=== PATIENT | female | born 1945 | race Caucasian/White ===

== ENCOUNTER 2018-06-14 17:53 | Emergency (ER) | payer SELFPAY ==
[2018-06-14] MEDS ORDERED: SERT-173 PO (17:55)
[2018-06-14] MEDS ORDERED: ASPI81TA94 PO (17:55)
--- NOTE | 2018-06-14 18:00 | ER Report ---
History and Physical Time Seen By MD: 17:57 HPI/ROS CHIEF COMPLAINT: Right hip and knee pain HISTORY OF PRESENT ILLNESS: 72-year-old female brought in by [place] [facility] complaining of right hip and knee pain. 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 No traumatic injury or falls. She is unable to get up and bear weight this morning. She notes no other health problems. He received fentanyl IV by EMS. REVIEW OF SYSTEMS: Respiratory: No cough, no dyspnea. Cardiovascular: No chest pain, no palpitations. Gastrointestinal: No vomiting, no abdominal pain. Musculoskeletal: As above Allergies: Coded Allergies: No Known Drug Allergies (Unverified , 06/14/18) Home Meds Active Scripts Hydrocodone Bit/Acetaminophen (HYDROCODON-ACETAMINOPHEN 5-325) 1 Each Tablet, 1 EACH PO Q4-6H PRN for PAIN, #12 TAKE ONE TABLET BY MOUTH EVERY 4-6 HOURS NEEDED FOR PAIN Prov:ESDRAS RICHARDSON DO 06/14/18 Ciprofloxacin Hcl 500 Mg Tab (CIPRO 500 MG TAB) 500 Mg Tablet, 500 MG PO BID for infection, #14 Prov:ESDRAS RICHARDSON DO 06/14/18 Reported Medications Aspirin (ASPIRIN) 81 Mg Tab.chew, 134 MG PO QDAY, TAB.CHEW 06/14/18 Sertraline Hcl (ZOLOFT) 100 Mg Tablet, 1 TAB PO QDAY, TAB 06/14/18 Reviewed Nurses Notes: Yes Old Medical Records Reviewed: Yes Constitutional Vital Sign - Last 24 Hours 06/14/18 06/14/18 06/14/18 06/14/18 17:57 18:00 18:15 18:30 Temp 98.3 Pulse 71 71 69 70 Resp 14 B/P (MAP) 115/55 115/55 (75) 127/66 (86) Pulse Ox 96 94 93 95 O2 Delivery Room Air 06/14/18 06/14/18 06/14/18 06/14/18 18:45 19:00 19:15 19:30 Pulse 76 71 73 76 B/P (MAP) 111/59 (76) ???/??? (1665) Pulse Ox 93 94 92 96 06/14/18 06/14/18 06/14/18 06/14/18 19:45 19:49 20:00 20:15 Pulse 71 72 68 B/P (MAP) 121/37 (65) 98/80 (86) Pulse Ox 92 94 95 06/14/18 06/14/18 06/14/18 06/14/18 20:30 20:45 21:00 21:09 Pulse 67 68 70 70 Resp 14 B/P (MAP) 139/71 (93) 120/68 (85) 108/58 (75) Pulse Ox 97 96 92 93 Physical Exam Vital signs stable, afebrile, pulse ox normal General Appearance: The patient is alert, has no immediate need for airway protection and no current signs of toxicity. Mild distress HEENT: Pupils equal and round no injection. He is normal, oropharynx without redness or exudate, mucous. Membranes are moist Respiratory: Chest is non tender, lungs are clear to auscultation. No wheezing or rails Cardiac: regular rate and rhythm Gastrointestinal: Abdomen is soft and non tender, no masses, bowel sounds normal. Musculoskeletal: Neck: Neck is supple and non tender. Extremities have full range of motion and are non tender. Elation of the right hip reveals moderate pain in the right hip joint. Skin: No rashes or lesions. DIFFERENTIAL DIAGNOSIS: After history and physical exam differential diagnosis was considered for hip pain, hip fracture, infected hip prosthesis, osteomyelitis, urinary tract infection, pneumonia Medical Decision Making Data Points Result Diagram: 06/14/18 1630 06/14/18 1630 Laboratory Hematology Test 06/14/18 16:30 06/14/18 19:10 Red Blood Count 4.99 M/uL (4.17-5.56) Mean Corpuscular Volume 88.8 fL (80.0-96.0) Mean Corpuscular Hemoglobin 30.4 pg (26.0-33.0) Mean Corpuscular Hemoglobin Concent 34.2 g/dL (32.0-36.0) Red Cell Distribution Width 14.4 % (11.5-14.5) Mean Platelet Volume 9.6 fL (7.2-11.1) Neutrophils (%) (Auto) 85.9 % (39.4-72.5) Lymphocytes (%) (Auto) 4.8 % (17.6-49.6) Monocytes (%) (Auto) 9.2 % (4.1-12.4) Eosinophils (%) (Auto) 0.0 % (0.4-6.7) Basophils (%) (Auto) 0.1 % (0.3-1.4) Nucleated RBC Relative Count (auto) 0.0 /100WBC Neutrophils # (Auto) 12.5 K/uL (2.0-7.4) Lymphocytes # (Auto) 0.7 K/uL (1.3-3.6) Monocytes # (Auto) 1.4 K/uL (0.3-1.0) Eosinophils # (Auto) 0.0 K/uL (0.0-0.5) Basophils # (Auto) 0.0 K/uL (0.0-0.1) Nucleated RBC Absolute Count (auto) 0.00 K/uL Erythrocyte Sedimentation Rate 18 mm/HOUR (0-30) Prothrombin Time 13.6 seconds (12.0-14.4) Prothromb Time International Ratio 1.04 Activated Partial Thromboplast Time 30 seconds (23-35) Sodium Level 131 mmol/L (137-145) Potassium Level 3.0 mmol/L (3.5-5.0) Chloride Level 93 mmol/L (98-107) Carbon Dioxide Level 20 mmol/L (22-31) Blood Urea Nitrogen 10 mg/dl (7-18) Creatinine 1.00 mg/dl (0.52-1.04) Glomerular Filtration Rate Calc 54.5 Random Glucose 126 mg/dl (75-110) Calcium Level 8.8 mg/dl (8.4-10.2) Total Bilirubin 0.8 mg/dl (0.2-1.3) Aspartate Amino Transf (AST/SGOT) 22 U/L (0-35) Alanine Aminotransferase (ALT/SGPT) 20 U/L (0-56) Alkaline Phosphatase 82 U/L (0-126) C-Reactive Protein 15.8 mg/dl (<1.0) Total Protein 8.0 g/dl (6.3-8.2) Albumin 4.1 g/dl (3.5-5.0) Urine Color Yellow Urine Clarity Slightly-cloudy Urine pH 5.0 pH (4.8-9.5) Urine Specific Pitcher 1.012 Urine Protein Negative mg/dL (NEGATIVE) Urine Glucose (UA) Negative mg/dL (NEGATIVE) Urine Ketones Negative mg/dL (NEGATIVE) Urine Blood Small (NEGATIVE) Urine Nitrite Positive (NEGATIVE) Urine Bilirubin Negative (NEGATIVE) Urine Urobilinogen 4.0 mg/dL (0.2-1.9) Urine Leukocyte Esterase Large (NEGATIVE) Urine RBC 2 /HPF (0-2/HPF) Urine WBC 77 /HPF (0-5/HPF) Urine WBC Clumps Few /HPF Urine Squamous Epithelial Cells Few /LPF (NONE-FEW) Urine Bacteria Negative /HPF (NONE-FEW) Urine Mucus Few /HPF (NONE-FEW) Chemistry Test 06/14/18 16:30 06/14/18 19:10 White Blood Count 14.6 k/uL (4.5-11.0) Red Blood Count 4.99 M/uL (4.17-5.56) Hemoglobin 15.1 g/dL (12.0-16.0) Hematocrit 44.3 % (34.0-47.0) Mean Corpuscular Volume 88.8 fL (80.0-96.0) Mean Corpuscular Hemoglobin 30.4 pg (26.0-33.0) Mean Corpuscular Hemoglobin Concent 34.2 g/dL (32.0-36.0) Red Cell Distribution Width 14.4 % (11.5-14.5) Platelet Count 233 K/uL (150-450) Mean Platelet Volume 9.6 fL (7.2-11.1) Neutrophils (%) (Auto) 85.9 % (39.4-72.5) Lymphocytes (%) (Auto) 4.8 % (17.6-49.6) Monocytes (%) (Auto) 9.2 % (4.1-12.4) Eosinophils (%) (Auto) 0.0 % (0.4-6.7) Basophils (%) (Auto) 0.1 % (0.3-1.4) Nucleated RBC Relative Count (auto) 0.0 /100WBC Neutrophils # (Auto) 12.5 K/uL (2.0-7.4) Lymphocytes # (Auto) 0.7 K/uL (1.3-3.6) Monocytes # (Auto) 1.4 K/uL (0.3-1.0) Eosinophils # (Auto) 0.0 K/uL (0.0-0.5) Basophils # (Auto) 0.0 K/uL (0.0-0.1) Nucleated RBC Absolute Count (auto) 0.00 K/uL Erythrocyte Sedimentation Rate 18 mm/HOUR (0-30) Prothrombin Time 13.6 seconds (12.0-14.4) Prothromb Time International Ratio 1.04 Activated Partial Thromboplast Time 30 seconds (23-35) Glomerular Filtration Rate Calc 54.5 Calcium Level 8.8 mg/dl (8.4-10.2) Total Bilirubin 0.8 mg/dl (0.2-1.3) Aspartate Amino Transf (AST/SGOT) 22 U/L (0-35) Alanine Aminotransferase (ALT/SGPT) 20 U/L (0-56) Alkaline Phosphatase 82 U/L (0-126) C-Reactive Protein 15.8 mg/dl (<1.0) Total Protein 8.0 g/dl (6.3-8.2) Albumin 4.1 g/dl (3.5-5.0) Urine Color Yellow Urine Clarity Slightly-cloudy Urine pH 5.0 pH (4.8-9.5) Urine Specific Pitcher 1.012 Urine Protein Negative mg/dL (NEGATIVE) Urine Glucose (UA) Negative mg/dL (NEGATIVE) Urine Ketones Negative mg/dL (NEGATIVE) Urine Blood Small (NEGATIVE) Urine Nitrite Positive (NEGATIVE) Urine Bilirubin Negative (NEGATIVE) Urine Urobilinogen 4.0 mg/dL (0.2-1.9) Urine Leukocyte Esterase Large (NEGATIVE) Urine RBC 2 /HPF (0-2/HPF) Urine WBC 77 /HPF (0-5/HPF) Urine WBC Clumps Few /HPF Urine Squamous Epithelial Cells Few /LPF (NONE-FEW) Urine Bacteria Negative /HPF (NONE-FEW) Urine Mucus Few /HPF (NONE-FEW) Coagulation Test 06/14/18 16:30 Prothrombin Time 13.6 seconds Prothromb Time International Ratio 1.04 Activated Partial Thromboplast Time 30 seconds Urinalysis Test 06/14/18 19:10 Urine Color Yellow Urine Clarity Slightly-cloudy Urine pH 5.0 pH (4.8-9.5) Urine Specific Pitcher 1.012 Urine Protein Negative mg/dL (NEGATIVE) Urine Glucose (UA) Negative mg/dL (NEGATIVE) Urine Ketones Negative mg/dL (NEGATIVE) Urine Blood Small (NEGATIVE) Urine Nitrite Positive (NEGATIVE) Urine Bilirubin Negative (NEGATIVE) Urine Urobilinogen 4.0 mg/dL (0.2-1.9) Urine Leukocyte Esterase Large (NEGATIVE) Urine RBC 2 /HPF (0-2/HPF) Urine WBC 77 /HPF (0-5/HPF) Urine WBC Clumps Few /HPF Urine Squamous Epithelial Cells Few /LPF (NONE-FEW) Urine Bacteria Negative /HPF (NONE-FEW) Urine Mucus Few /HPF (NONE-FEW) Microbiology Microbiology Date/Time Source Procedure Growth Status 06/14/18 19:19 Blood Peripheral Draw Blood Culture - Preliminary NO GROWTH AFTER 3 DAYS, REINCUBATED Resulted 06/14/18 19:15 Blood Peripheral Draw Blood Culture - Preliminary NO GROWTH AFTER 3 DAYS, REINCUBATED Resulted 06/14/18 19:17 Cath Urine Urine Culture - Final Escherichia Coli Complete ED Course/Re-evaluation Clinical Indication for ER IV: IV Access ED Course Patient was admitted to an examination room. H&P was done. The differential diagnoses was considered. On clinical examination. Patient has a painful right hip on manipulation. X-rays are unremarkable. Patient has elevated white blood cell count and a CRP. Catheter urinalysis suggests long infection. Patient's chest x-ray is unremarkable. Patient's treated with Rocephin 1 g IV. She is given Cipro 500 mg by mouth. Should be discharged on Cipro. I think her pain is referred from the bladder to the hip area. Patient advised to follow-up with her primary care unimproved in 3-5 days. Decision to Disposition Date: Jun 14, 2018 Decision to Disposition Time: 19:57 Depart Departure Latest Vital Signs Vital Signs Date Time Temp Pulse Resp B/P (MAP) Pulse Ox O2 Delivery O2 Flow Rate FiO2 06/14/18 21:09 70 14 108/58 (75) 93 06/14/18 17:57 98.3 Room Air Impression: Primary Impression: Urinary tract infection Additional Impressions: Right hip pain Hypokalemia Condition: Improved Disposition: HOME OR SELF-CARE New Scripts Hydrocodone Bit/Acetaminophen (HYDROCODON-ACETAMINOPHEN 5-325) 1 Each Tablet 1 EACH PO Q4-6H PRN for PAIN, #12 TAKE ONE TABLET BY MOUTH EVERY 4-6 HOURS NEEDED FOR PAIN Prov: ESDRAS RICHARDSON DO 06/14/18 Ciprofloxacin Hcl 500 Mg Tab (CIPRO 500 MG TAB) 500 Mg Tablet 500 MG PO BID for infection, #14 Prov: ESDRAS RICHARDSON DO 06/14/18 Patient Instructions: Urinary Tract Infection in Women (DC) Additional Instructions: Follow-up with your primary care doctor if unimproved in 3-5 days. Problem Qualifiers Primary Impression: Urinary tract infection Urinary tract infection type: acute cystitis Hematuria presence: without hematuria Qualified Codes: N30.00 - Acute cystitis without hematuria ESDRAS RICHARDSON DO Jun 14, 2018 18:00
[2018-06-14 18:23] LABS: PLATELET COUNT, AUTOMATED 233 K/uL (150-450)
[2018-06-14 18:24] LABS: INR 1.04
--- NOTE | 2018-06-14 18:43 | RADIOLOGY IMAGING REPORT ---
FACILITY: [facility] - [place] PATIENT NAME: Mone Dexter : 1945 MR: [id number] V: [id number] EXAM DATE: ORDERING PHYSICIAN: ESDRAS RICHARDSON TECHNOLOGIST: Location: [facility] - [place] Patient: Mone Dexter : 1945 Visit/Account:[id number] Date of Sevice: 06/14/2018 Exam type: 2 views right hip, 2 views right femur History: Right hip pain Comparison: None. Findings: Postoperative changes are noted from a right hip arthroplasty with a longstem femoral component. No hardware complication although the distal tip is oriented slightly laterally. Patient is osteopenic. Soft tissues are unremarkable. The distal femur appears to be intact. IMPRESSION: 1. Postoperative changes are noted from right hip arthroplasty without hardware complication. No ac [place] fracture of the pelvis or right femur. 2. Osteopenia. Report Dictated By: Walter Thornton MD at 06/14/2018 6:37 PM Report E-Signed By: Walter Thornton MD at 06/14/2018 6:39 PM [id number]
--- NOTE | 2018-06-14 18:44 | RADIOLOGY IMAGING REPORT ---
FACILITY: [facility] - [place] PATIENT NAME: Mone Dexter : 1945 MR: [id number] V: [id number] EXAM DATE: ORDERING PHYSICIAN: ESDRAS RICHARDSON TECHNOLOGIST: Location: [facility] - [place] Patient: Mone Dexter : 1945 Visit/Account:[id number] Date of Sevice: 06/14/2018 Exam type: 2 views right hip, 2 views right femur History: Right hip pain Comparison: None. Findings: Postoperative changes are noted from a right hip arthroplasty with a longstem femoral component. No hardware complication although the distal tip is oriented slightly laterally. Patient is osteopenic. Soft tissues are unremarkable. The distal femur appears to be intact. IMPRESSION: 1. Postoperative changes are noted from right hip arthroplasty without hardware complication. No ac [place] fracture of the pelvis or right femur. 2. Osteopenia. Report Dictated By: Walter Thornton MD at 06/14/2018 6:37 PM Report E-Signed By: Walter Thornton MD at 06/14/2018 6:39 PM [id number]
[2018-06-14] MEDS ORDERED: fentaNYL CITR 100 MCG/2 ML AMP IVP ONE (19:40)
[2018-06-14] MEDS ORDERED: CIPROFLOXACIN 500 MG TAB PO ONE (19:50)
[2018-06-14] MEDS ORDERED: cefTRIAXone 1 GM VIAL IVP ONE (19:50)
[2018-06-14] MEDS ORDERED: ACET/HYDROC 5/325MG TH ER ONLY 2 TAB/BOTTLE PO ONE (19:50)
[2018-06-14] MEDS ORDERED: CIPR-344 PO (19:58)
[2018-06-14] MEDS ORDERED: LOR5/325 PO (19:58)
[2018-06-14] MEDS ORDERED: POTASSIUM CHL 20 MEQ TABCR PO ONE (20:10)
[2018-06-14] MEDS ORDERED: KETOROLAC 30 MG/ML VIAL IVP ONE (20:10)
--- NOTE | 2018-06-14 20:43 | RADIOLOGY IMAGING REPORT ---
FACILITY: [facility] - [place] PATIENT NAME: Mone Dexter : 1945 MR: [id number] V: [id number] EXAM DATE: ORDERING PHYSICIAN: ESDRAS RICHARDSON TECHNOLOGIST: Location: [facility] Patient: Mone Dexter : 1945 Visit/Account:[id number] Date of Sevice: 06/14/2018 EXAMINATION: Portable AP Chest HISTORY: Fever and chills. COMPARISON: None. FINDINGS: The lungs are clear. No focal consolidation or pleural effusion. No pneumothorax. Normal cardiomediastinal silhouette, with normal heart size and pulmonary vascularity. No acute osseous findings in the chest. IMPRESSION: No evidence of acute cardiopulmonary disease. Report Dictated By: Yamil Lopes MD at 06/14/2018 8:39 PM Report E-Signed By: Yamil Lopes MD at 06/14/2018 8:40 PM [id number]
[2018-06-14 21:09] VITALS: BP 108/58
== END 2018-06-14 21:30 | disposition home or self-care (01) ==
LOC: ER 18:00
DX: N30.00 Acute cystitis without hematuria (principal); E87.6 Hypokalemia; M25.551 Pain in right hip; B96.20 Unspecified Escherichia coli [E. coli] as the cause of diseases classified elsewhere
CPT/HCPCS: 36415; 71045; 73502; 73552; 81001; 85025; 85610; 85651; 85730; 86140; 87040; 87077; 87088; 87186; 96374; 96375; 99284; A4353; J0696; J1885; J3010; 82040; 82247; 82310; 82374; 82435; 82565; 82947; 84075; 84132; 84155; 84295; 84450; 84460; 84520